=== PATIENT | female | born 1975 | race Caucasian/White ===

== ENCOUNTER 2017-11-10 07:01 | Observation (INO) | payer SELFPAY ==
[2017-11-10] MEDS ORDERED: Ondansetron INJ* 2 MG/ML VIAL IV PRN (08:24)
[2017-11-10] MEDS ORDERED: Acetaminophen TAB* 325 MG PO PRN ×2 (08:24→11:34)
[2017-11-10] MEDS ORDERED: Ketorolac INJ* 30 MG/ML 1 ML VIAL IV PUSH PRN (08:27)
[2017-11-10 11:47] VITALS: BP 141/91
[2017-11-10] MEDS ORDERED: SUMAtriptan TAB* 50 MG PO ONE (12:17)
[2017-11-10] MEDS ORDERED: Ibuprofen TAB* 800 MG PO ONE (12:17)
--- NOTE | 2017-11-10 15:46 | HP ---
ADMISSION HISTORY AND PHYSICAL: DATE OF ADMISSION: 11/10/17 PRIMARY CARE PROVIDER: ARNOLDO Jim [facility] PROXY: Her mother. CODE STATUS: Full. PREVIOUS NEUROLOGIST: Dr. Kuhn at [facility] since retired, not seen anybody since then. SOURCE OF INFORMATION: History obtained from interview with the patient, review of records from [facility]. CHIEF COMPLAINT: Transfer from [facility] for headache. HISTORY OF PRESENT ILLNESS: This is a 42-year-old female, past migraine of cyclic migraines as well as reported pseudotumor cerebri, who started experiencing headache day prior to presentation at [facility] on 11/08/17. That day was also punctuated by 3 episodes of epistaxis. Overnight, her headache increased which felt similar to previous episodes of her headache, but it was noted to be more intense. She described it as right frontal and occipital throbbing. She does note that the pseudotumor usually feels like "an ocean in my head" and this did not feel that way. She took Tylenol 500 mg several times throughout the day without relief. She felt that light and sound "irritated" her head, but did not necessarily worsen her headache. She tried to rest and lie down with no relief and proceeded to the hospital. She notes that she has headache most days of the year without any relief and this was more severe, for which reason she presented to the hospital. In addition to her headache, she had noticed pain in her chest for several days more described as a pressure associated with left hand aching and numbness as well as numbness in her lips. 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 She received 3 negative troponins while at [facility], all negative and chest pain resolved. She has 2 EKGs that were transferred that noted normal sinus rhythm without evidence of ischemia. In reference to her headaches, she was previously on Diamox 1 year prior, stopped taking it due to lack of insurance. She was also previously prescribed propranolol and losartan, but did not take them because she was told that they interacted with her Diamox. She noted that on the day prior to her presentation , her blood pressure had been increasing and while at work as a medical health researcher that her systolic blood pressure had been over 200. While at [facility] , she noted that the overnight therapy worked, but then the headache returned. She noted pressure in her head was 5/10 at the time of this interview, generally worsened by agitation or anxiety. She noted no postural influence on the severity of her headache, but it was worsened by crowded areas. She notes at the previous treatment of her headaches, she had serial LPs approximately 1 year ago that would occasionally confer mini relief, but never any sustained relief. At this time, she notes her goals of care would be to control her blood pressure as her headache is at a level that typically is daily. Previous review of the [facility] records indicate that she refused some medications while there as well as refused a lumbar puncture. Patient indicated refusal of lumbar puncture because they are frequently unsuccessful at [facility]. She has had successful LPs performed under fluoroscopy. Records indicate that her chest pressure has improved with aspirin and sublingual nitroglycerin. Transfer records indicate she was transferred secondary to history of pseudotumor cerebri and no neurological services available at [facility]. REVIEW OF SYSTEMS: As per HPI, otherwise all other systems negative. PAST MEDICAL HISTORY: Includes cyclic migraines; depression; anxiety; hypertension; pseudotumor cerebri; cholecystectomy in 1998; appendectomy in 1998 ; C- section; varicose vein ablation, noted to be cervical or uterine ablation, patient is unclear. SOCIAL HISTORY: No history of tobacco. No alcohol. She is a medical health researcher in Dr. Rodriguez's office as well as works at [employer]. FAMILY HISTORY: Hypertension in mother with CAD and a CABG at age 60. She notes both of her maternal grandparents had CAD. ALLERGIES: 1. DAG would cause low blood pressure. 2. FLU VACCINE which makes me sick every time. 3. ANTIDEPRESSANTS except Lexapro which all causes anxiety and anxiety attacks. 4. ANTIEMETICS except for Zofran which causes shortness of breath and sensation of crawling out of her skin. MEDICATIONS AT HOME: Currently none. In [facility], she received: 1. Normal saline. 2. Ketorolac. 3. Benadryl. 4. Aspirin. 5. Nitroglycerin. 6. Fentanyl twice. 7. Zofran. 8. Captopril 25 mg. 9. Lovenox approximately 11:40 p.m. 10. Acetaminophen 640 mg. 11. Calcium carbonate. 12. Pantoprazole. 13. Oxycodone 5 mg. PHYSICAL EXAMINATION GENERAL: Obese woman, lying flat in bed, interactive, pleasant, in no apparent distress. VITAL SIGNS: At [facility] [place]; blood pressure 130/87, respiratory rate 16, heart rate 74 , 100% on room air, and T-max 98.3. HEENT: Oropharynx is clear. She has moist mucous membranes. Sclerae are anicteric. No notable papilledema. NECK: Non-elevated JVD. No cervical or supraclavicular lymphadenopathy. LUNGS: Clear to auscultation. HEART: She has a regular rate and rhythm. No murmurs, rubs, or gallops. ABDOMEN: Soft, nontender, nondistended. EXTREMITIES: Warm and well perfused without clubbing, cyanosis, or edema. NEUROLOGIC: She is alert and oriented x3. Her cranial nerves II through XII are intact. She has 5/5 strength throughout. She has no apparent anxiety, agitation, or depression. LABORATORY DATA: [facility] labs reviewed from 5:48 p.m. White blood cell count 7.4, hemoglobin 14.4, platelets 224, glucose 78, BUN 15, creatinine 1.0. Sodium 146, potassium 3.6, chloride 109, bicarb 32, albumin 3.5. Troponin I less than 0.015 on 3 consecutive checks. Urine negative, only notable for a pH of 6.0, urine specific gravity of 1.25. DIAGNOSTIC DATA: Written report CT head, normal exam. Chest x-ray, normal exam. EKGs reviewed from 11/09/17 at both 5:26 and 6:38 noted normal sinus rhythm, normal limit axis, normal limit intervals, normal R-wave progression. No Q- waves, no ST or T-wave changes. ASSESSMENT AND PLAN: This is a 42-year-old female, history of pseudotumor cerebri as well as cyclic migraines, high blood pressure, depression and anxiety , off all medications secondary to financial barriers, presenting to the hospital with headache, history of chest pain, and hypertension. 1. Headache. Patient notes that her headache at this point is at a level that it is daily. She is averse to lumbar puncture, which I agree with as it does not confer long-term benefit. She is averse to taking acetazolamide. She did not feel it conferred any benefit in the past. We will treat her at this point with Toradol to release some relief, but I think she more likely needs long- term followup with a neurologist for long-term treatment goals. I do not think she necessarily needs a Neurology consultation at this point, as headache is not a predominant issue what it typically is 365 days per year. 2. Chest pain. Two normal EKGs performed at [facility] reviewed by this author with 3 negative troponins, also available for review by this author. I do not think she urgently needs inpatient stress test at this point. We will work to arrange a PCP and insurance evaluation for this patient with social work. If she should continue to have chest pain, we will reevaluate inpatient stress testing. 3. Hypertension. Currently controlled. She received captopril 25 mg once at [facility]. Lisinopril and hydrochlorothiazide combination tab is available for 4 dollar a monthly prescription from [facility] which she is in agreement with. We had started a low dose 10/12.5 mg with availability to titrate up to 20/25 mg in a single tab. Patient is in agreement. We will not dose at this point because the patient's blood pressure is controlled. If blood pressure increases , we will dose this medication and monitor. She may be available to be discharged later today. 4. Depression. Averse to medications at this point. 5. Anxiety. Averse to medications at this point. 6. DVT prophylaxis. Received Lovenox at 11 p.m. last night. Continue to ambulate throughout the day. If she remains, we will reevaluate need for additional anticoagulation. TIME SPENT: Greater than 60 minutes was spent on the admission of this patient , greater than half was [id number] with the patient. [id number]/[facility] #: [id number] BENJAMIN
--- NOTE | 2017-11-11 03:27 | DS ---
DISCHARGE SUMMARY: DATE OF ADMISSION: 11/10/17 DATE OF DISCHARGE: 11/10/17 PRIMARY CARE PROVIDER: None. The patient did not want to establish with a new primary care provider. PRIMARY DIAGNOSES: 1. Hypertension. 2. Headache. SECONDARY DIAGNOSES: 1. Benign intracranial hypertension. 2. Anxiety. 3. Depression. MEDICATIONS ON DISCHARGE: Include: 1. Combination lisinopril/hydrochlorothiazide 10/12.5, prescribed 90 tabs without refills. 2. Acetaminophen 975 mg every 6 hours as needed for pain. HISTORY OF PRESENT ILLNESS AND HOSPITAL COURSE: Please see the history and present illness from this morning for details surrounding the patient's presentation and transfer to [facility]. At the time of her admission this morning, the patient felt that her headache was at baseline level that she experiences nearly every day, 365 days a year. She felt that her uncontrolled hypertension was her greatest concern and thus we strove to control her blood pressure. On presentation, she had controlled blood pressure after receiving medications including captopril at [facility]. Throughout the day, the patient expressed desire to have complete relief from head-ache that she has been experiencing nearly every day. Attempts were made to administer acetaminophen, Motrin, and Imitrex, all which were declined by the patient. She did receive 1 dose of ketorolac 30 mg without success. I discussed with the patient and she was increasingly frustrated that she had not seen Neurosurgery. She indicated that she had been offered a shunt in the past and does not want to consider at this point, but still wanted to see Neurosurgery. I discussed medical management and/or lumbar puncture for management of her headache all of which she declines. She does not make entirely clear what it was that she wanted out of the care at this hospital and was requesting to leave. At this point, I do not think she is unsafe to leave the hospital as her headache is at its baseline and her blood pressure is well controlled. I am prescribing a new antihypertensive for the patient, which she can pepper picker on the 4-dollar plan from [employer]. Total cost for 3 months would be 10 dollars. We discussed extensive return to the emergency room instructions for which she acknowledged understanding. Information was given to the patient for contact in the community to help obtain insurance coverage. She did not seem interested in contacting these people, as she said they have "nothing for me." She became increasingly loud and argumentative with this author. She will be discharged with the medication and instructions for following up with Neurology and/or Neurosurgery and recommended establishing with PCP, all which she declined my assistance in obtaining. TIME SPENT: Greater than 45 minutes was spent in the discharge of this patient , greater than half was spent [id number] with the patient. [id number]/[facility] #: [id number] MTDD
== END 2017-11-10 14:20 | disposition home or self-care (01) ==
LOC: MEDTELE 07:05 → INTOOBSV 07:05
PROVIDERS: ADMIT Pediatrics; ATTEND Internal Medicine
DX: I10 Essential (primary) hypertension (principal); R51 Headache; G93.2 Benign intracranial hypertension; F41.9 Anxiety disorder, unspecified; F32.9 Major depressive disorder, single episode, unspecified; Z79.82 Long term (current) use of aspirin
CPT/HCPCS: 96374; A9270-GY; G0378; J1885